=== PATIENT | male | born 1975 ===

== ENCOUNTER 2021-06-11 02:24 | Observation (INO) | payer OTHER ==
--- NOTE | 2021-06-11 04:57 | Emergency Department Report ---
HPI - General Chief Complaint: Psych Time Seen by Provider: 06/11/21 03:49 - HPI HPI: 45-year-old male reportedly with history of schizophrenia/bipolar disorder brought in by EMS for SI/HI. The patient states that he is having a crisis and his of 25 years left him. He states that he stood over her today with a gun and wanted to kill her. He says that he did not kill her because he still loves her but that he wanted to be killed by avionics supervisor in a shoot out. He told the operations staff specialist security that when he gets out of here he is going to go kill his . He says to me that he has command auditory hallucinations telling him to kill himself. He denies visual hallucinations. He denies any physical symptoms or complaints other than anxiety and stress. ED Past Medical Hx - Past Medical History Previous Medical History?: Yes Hx Psychiatric Treatment: (bipolar, Schizophrenia) - Surgical History Past Surgical History?: No - Social History Smoking Status: Current Every Day Smoker Substance Use Type: Alcohol, Marijuana - Medications Home Medications: Home Medications Medication Instructions Recorded Confirmed Last Taken Type Divalproex Dr [Karen Raymundo] 250 mg PO BID #60 tablet 06/14/21 Unknown Rx Famotidine [Pepcid] 20 mg PO BID tablet 06/14/21 Unknown Rx OLANzapine [ZyPREXA] 7.5 mg PO QDAY #30 tablet 06/14/21 Unknown Rx traZODone [Desyrel] 50 mg PO QHS #30 tablet 06/14/21 Unknown Rx ED Review of Systems ROS: Stated complaint: MH Other details as noted in HPI Constitutional: denies: chills, fever Eyes: denies: eye pain, vision change ENT: denies: throat pain, dental pain Respiratory: denies: cough, shortness of breath Cardiovascular: denies: chest pain, palpitations Gastrointestinal: denies: abdominal pain, nausea, vomiting Genitourinary: denies: dysuria, frequency, discharge Musculoskeletal: denies: back pain, joint swelling Neurological: denies: headache, weakness, numbness Psychiatric: depression, auditory hallucinations, homicidal thoughts, suicidal thoughts. denies: visual hallucinations Physical Exam - Physical Exam Vital Signs: Vital Signs 06/11/21 03:37 Temperature 98.2 F Pulse Rate 64 Respiratory 18 Rate Blood Pressure 130/69 [Left] O2 Sat by Pulse 98 Oximetry Physical Exam: GENERAL: Well developed and well nourished. Tearful. Withdrawn. HEENT: Normocephalic. No obvious signs of trauma. Moist mucous membranes. EYES: Extraocular movements are intact. Pupils are equal round and reactive to light bilaterally NECK: Supple. Trachea is midline. LUNGS: Nonlabored breathing. Equal chest rise bilaterally. Clear to auscultation bilaterally. HEART/CARDIOVASCULAR: Regular rate and rhythm. No murmurs or rubs. VASCULAR: 2+ peripheral pulses. Cap refill < 2 seconds ABDOMEN: Abdomen is soft and nondistended. There is no significant tenderness, guarding or rebound. SKIN: Skin is warm and dry NEURO: Patient is awake, alert, and oriented. manager of photography II-XII grossly intact. No focal deficits. Normal motor and sensory exam throughout. Normal speech. Normal gait. MUSCULOSKELETAL: No obvious deformities. No significant tenderness. Normal ROM throughout. . ED Course Vital Signs 06/11/21 03:37 Temperature 98.2 F Pulse Rate 64 Respiratory 18 Rate Blood Pressure 130/69 [Left] O2 Sat by Pulse 98 Oximetry ED Medical Decision Making - Lab Data Result diagrams: 06/13/21 09:59 06/13/21 09:59 Lab Results 06/11/21 06/11/21 06/11/21 Range/Units 03:41 03:41 08:23 WBC (4.5-11.0) K/mm3 RBC (3.65-5.03) M/mm3 Hgb (11.8-15.2) gm/dl Hct (35.5-45.6) % MCV (84-94) fl MCH (28-32) pg MCHC (32-34) % RDW (13.2-15.2) % Plt Count (140-440) K/mm3 Lymph % (Auto) (13.4-35.0) % [place] % (Auto) (0.0-7.3) % Eos % (Auto) (0.0-4.3) % Baso % (Auto) (0.0-1.8) % Lymph # (Auto) (1.2-5.4) K/mm3 [place] # (Auto) (0.0-0.8) K/mm3 Eos # (Auto) (0.0-0.4) K/mm3 Baso # (Auto) (0.0-0.1) K/mm3 Seg Neutrophils % (40.0-70.0) % Seg Neutrophils # (1.8-7.7) K/mm3 Sodium (137-145) mmol/L Potassium (3.6-5.0) mmol/L Chloride (98-107) mmol/L Carbon Dioxide (22-30) mmol/L Anion Gap mmol/L BUN (9-20) mg/dL Creatinine (0.8-1.3) mg/dL Estimated GFR ml/min BUN/Creatinine Ratio % Glucose (75-100) mg/dL Calcium (8.4-10.2) mg/dL Urine Color Yellow (Yellow) Urine Turbidity Clear (Clear) Urine pH 5.0 (5.0-7.0) Ur Specific [place] 1.021 (1.003-1.030) Urine Protein <15 mg/dl (Negative) mg/dL Urine Glucose (UA) Neg (Negative) mg/dL Urine Ketones 20 (Negative) mg/dL Urine Blood Neg (Negative) Urine Nitrite Neg (Negative) Urine Bilirubin Neg (Negative) Urine Urobilinogen 4.0 (<2.0) mg/dL Ur Leukocyte Esterase Neg (Negative) Urine WBC (Auto) 1.0 (0.0-6.0) /HPF Urine RBC (Auto) 1.0 (0.0-6.0) /HPF U Epithel Cells (Auto) < 1.0 (0-13.0) /HPF Urine Mucus Few /HPF Salicylates < 0.3 L (2.8-20.0) mg/dL Urine Opiates Screen Presumptive negative Urine Methadone Screen Presumptive negative Acetaminophen (10.0-30.0) ug/mL Ur Barbiturates Screen Presumptive negative Ur Phencyclidine Scrn Presumptive negative Ur Amphetamines Screen Presumptive negative U Benzodiazepines Scrn Presumptive negative Urine Cocaine Screen Presumptive negative U Marijuana (THC) Screen Presumptive positive Drugs of Abuse Note Disclamer Plasma/Serum Alcohol (0-0.07) % Coronavirus (PCR) (Negative) 06/11/21 06/11/21 06/11/21 Range/Units 08:23 08:23 08:23 WBC (4.5-11.0) K/mm3 RBC (3.65-5.03) M/mm3 Hgb (11.8-15.2) gm/dl Hct (35.5-45.6) % MCV (84-94) fl MCH (28-32) pg MCHC (32-34) % RDW (13.2-15.2) % Plt Count (140-440) K/mm3 Lymph % (Auto) (13.4-35.0) % [place] % (Auto) (0.0-7.3) % Eos % (Auto) (0.0-4.3) % Baso % (Auto) (0.0-1.8) % Lymph # (Auto) (1.2-5.4) K/mm3 [place] # (Auto) (0.0-0.8) K/mm3 Eos # (Auto) (0.0-0.4) K/mm3 Baso # (Auto) (0.0-0.1) K/mm3 Seg Neutrophils % (40.0-70.0) % Seg Neutrophils # (1.8-7.7) K/mm3 Sodium 142 (137-145) mmol/L Potassium 3.7 (3.6-5.0) mmol/L Chloride 106.0 (98-107) mmol/L Carbon Dioxide 26 (22-30) mmol/L Anion Gap 14 mmol/L BUN 9 (9-20) mg/dL Creatinine 1.0 (0.8-1.3) mg/dL Estimated GFR > 60 ml/min BUN/Creatinine Ratio 9 % Glucose 77 (75-100) mg/dL Calcium 9.4 (8.4-10.2) mg/dL Urine Color (Yellow) Urine Turbidity (Clear) Urine pH (5.0-7.0) Ur Specific [place] (1.003-1.030) Urine Protein (Negative) mg/dL Urine Glucose (UA) (Negative) mg/dL Urine Ketones (Negative) mg/dL Urine Blood (Negative) Urine Nitrite (Negative) Urine Bilirubin (Negative) Urine Urobilinogen (<2.0) mg/dL Ur Leukocyte Esterase (Negative) Urine WBC (Auto) (0.0-6.0) /HPF Urine RBC (Auto) (0.0-6.0) /HPF U Epithel Cells (Auto) (0-13.0) /HPF Urine Mucus /HPF Salicylates (2.8-20.0) mg/dL Urine Opiates Screen Urine Methadone Screen Acetaminophen 5.0 L (10.0-30.0) ug/mL Ur Barbiturates Screen Ur Phencyclidine Scrn Ur Amphetamines Screen U Benzodiazepines Scrn Urine Cocaine Screen U Marijuana (THC) Screen Drugs of Abuse Note Plasma/Serum Alcohol < 0.01 (0-0.07) % Coronavirus (PCR) (Negative) 06/11/21 06/11/21 06/12/21 Range/Units 08:23 10:23 07:59 WBC 13.6 H 12.7 H (4.5-11.0) K/mm3 RBC 4.63 4.85 (3.65-5.03) M/mm3 Hgb 13.9 14.2 (11.8-15.2) gm/dl Hct 43.5 45.1 (35.5-45.6) % MCV 94 93 (84-94) fl MCH 30 29 (28-32) pg MCHC 32 32 (32-34) % RDW 14.7 14.7 (13.2-15.2) % Plt Count 376 430 (140-440) K/mm3 Lymph % (Auto) 16.9 (13.4-35.0) % Berg[place] % (Auto) 5.8 (0.0-7.3) % Eos % (Auto) 0.5 (0.0-4.3) % Baso % (Auto) 0.5 (0.0-1.8) % Lymph # (Auto) 2.3 (1.2-5.4) K/mm3 [place] # (Auto) 0.8 (0.0-0.8) K/mm3 Eos # (Auto) 0.1 (0.0-0.4) K/mm3 Baso # (Auto) 0.1 (0.0-0.1) K/mm3 Seg Neutrophils % 76.3 H (40.0-70.0) % Seg Neutrophils # 10.4 H (1.8-7.7) K/mm3 Sodium (137-145) mmol/L Potassium (3.6-5.0) mmol/L Chloride (98-107) mmol/L Carbon Dioxide (22-30) mmol/L Anion Gap mmol/L BUN (9-20) mg/dL Creatinine (0.8-1.3) mg/dL Estimated GFR ml/min BUN/Creatinine Ratio % Glucose (75-100) mg/dL Calcium (8.4-10.2) mg/dL Urine Color (Yellow) Urine Turbidity (Clear) Urine pH (5.0-7.0) Ur Specific [place] (1.003-1.030) Urine Protein (Negative) mg/dL Urine Glucose (UA) (Negative) mg/dL Urine Ketones (Negative) mg/dL Urine Blood (Negative) Urine Nitrite (Negative) Urine Bilirubin (Negative) Urine Urobilinogen (<2.0) mg/dL Ur Leukocyte Esterase (Negative) Urine WBC (Auto) (0.0-6.0) /HPF Urine RBC (Auto) (0.0-6.0) /HPF U Epithel Cells (Auto) (0-13.0) /HPF Urine Mucus /HPF Salicylates (2.8-20.0) mg/dL Urine Opiates Screen Urine Methadone Screen Acetaminophen (10.0-30.0) ug/mL Ur Barbiturates Screen Ur Phencyclidine Scrn Ur Amphetamines Screen U Benzodiazepines Scrn Urine Cocaine Screen U Marijuana (THC) Screen Drugs of Abuse Note Plasma/Serum Alcohol (0-0.07) % Coronavirus (PCR) Negative (Negative) - Medical Decision Making 45-year-old male brought in by EMS with SI/HI. The patient told me that earlier today he went and stood over his with a gun and thought about killing her. He says he did not kill her because he loves her but was thinking about dying by having the avionics supervisor shoot him. He also reports that he is having command auditory hallucinations telling him to kill himself. Given that he has expressed a threat towards both himself and others I feel that he is a danger and I have placed and signed a 1013 order. I will send a full set of medical clearance labs. Of note, the patient apparently told security that he shot his yesterday, which is different from the story that I heard. The police have been called to make a report. Patient's labs have resulted and there is only a mild leukocytosis. Patient has no signs or symptoms of infection. Kidney function is normal and there are no significant electrolyte abnormalities. He is medically cleared for psychiatric evaluation and placement. On 06/12/2021, the patient was admitted to medicine due to persistent leukocytosis. Critical care attestation.: If time is entered above; I have spent that time in minutes in the direct care of this critically ill patient, excluding procedure time. ED Disposition Clinical Impression: Leukocytosis (leucocytosis), Psychosis Disposition: OP ADMIT IP TO THIS HOSP Is pt being admited?: Yes Condition: Stable
[2021-06-11 06:11] LABS: Bilirubin,Urine NEG (Negative); Blood,Urine NEG (Negative); Color,Urine Yellow (Yellow); Mucus,Urine FEW /HPF; Protein,Urine <15 mg/dL mg/dL (Negative)
[2021-06-11 06:18] LABS: Amphetamine Screen,Urine PRESUMPTIVE NEGATIVE; Benzodiazepines Screen,Urine PRESUMPTIVE NEGATIVE; Cannabinoid Screen,Urine PRESUMPTIVE POSITIVE; Cocaine Screen,Urine PRESUMPTIVE NEGATIVE; Methadone Screen,Urine PRESUMPTIVE NEGATIVE; Opiate Screen,Urine PRESUMPTIVE NEGATIVE
[2021-06-11 09:23] LABS: BUN/Creatinine Ratio 9; Blood Urea Nitrogen 9 mg/dL (9-20); Calcium 9.4 mg/dL (8.4-10.2); Hemolysis Index 1
[2021-06-11 09:31] LABS: Basophils # (Auto) 0.1 K/mm3 (0.0-0.1); Basophils % (Auto) 0.5 % (0.0-1.8); Eosinophils # (Auto) 0.1 K/mm3 (0.0-0.4); Eosinophils % (Auto) 0.5 % (0.0-4.3); Hematocrit 43.5 % (35.5-45.6); Hemoglobin 13.9 gm/dl (11.8-15.2); Lymphocytes # (Auto) 2.3 K/mm3 (1.2-5.4); Lymphocytes % (Auto) 16.9 % (13.4-35.0); Mean Corpuscular HGB Conc 32 % (32-34); Mean Corpuscular Volume 94 fl (84-94); Monocytes # (Auto) 0.8 K/mm3 (0.0-0.8); Monocytes % (Auto) 5.8 % (0.0-7.3); Platelet Count 376 K/mm3 (140-440); Red Blood Count 4.63 M/mm3 (3.65-5.03); Red Cell Distribution Width 14.7 % (13.2-15.2)
--- NOTE | 2021-06-11 09:31 | Consultation ---
History of Present Illness - Reason for Consult Consult date: 06/11/21 Reason for consult: SI/HI - History of Present Psychiatric Illness Per ER Note: 45-year-old male reportedly with history of schizophrenia/bipolar disorder brought in by EMS for SI/HI. The patient states that he is having a crisis and his of 25 years left him. He states that he stood over her today with a gun and wanted to kill her. He says that he did not kill her because he still loves her but that he wanted to be killed by notch grinder in a shoot out. He told the internet security specialist that when he gets out of here he is going to go kill his . He says to me that he has command auditory hallucinations telling him to kill himself. He denies visual hallucinations. He denies any physical symptoms or complaints other than anxiety and stress. Flores Lopez is a 45y/o male patient whom I evaluated today. He is cooperative. He is tearful, and appears depressed. His affect is flat. The patient is hopeless. He says "last night I wanted to kill myself and my ." The patient says "I have so much vested in that relationship. I only want her." He says he is hearing voices telling him to "kill her ass." The patient says he knows he can get away with it. Discussed with the patient the need to think about his decisions and the consequences they will have. The patient says "I've gotten away with murder before. I haven't got caught. You get better at it each time." He says he sees "green and blue dots." He says he was just released from snf in January. The patient denies a past psych diagnoses or being on any meds although it is documented that he has a history of schizophrenia and bipolar. PAST PSYCHIATRIC HISTORY: Diagnoses: Schizophrenia, bipolar (documented but denies) Suicide attempts or Self-harm behavior: Denies Prior psychiatric hospitalizations: Denies Substance Abuse history: THC, alcohol (two months since any alcohol) Previous psychiatric medications tried: Denies Outpatient treatment: Denies PAST MEDICAL HISTORY: Denies Family Psychiatric History: None reported or documented SOCIAL HISTORY Marital Status: Living Arrangements: alone Employment Status: Unemployed Access to guns/weapons: denies Education: History of Abuse: denies Legal History: denies REVIEW OF SYSTEMS Constitutional: Negative for weight loss ENT: Negative for stridor Respiratory: Negative for cough or hemoptysis All other systems reviewed and are negative MENTAL STATUS EXAMINATION General Appearance and Behavior: Age appropriate, wearing appropriate clothes, cooperative polite with questioning, good eye contact, cooperative Cooperation: cooperative, guarded Psychomotor Behavior: Psychomotor normal Mood: "depressed" Affect and affective range: congruent with stated mood, tearful Thought Process: illogical Thought Content: hallucinations, HI/SI, hopelessness Speech: Normal volume, Regular rate and rhythm Suicidal Ideation: Yes Homicidal Ideation: Yes hallucination: Auditory/Visual Delusions: None elicited Impulse Control: Impaired Insight and Judgment: Impaired Memory: Intact Attention: attentive, engaging Orientation: Alert and oriented Diagnoses: Schizophrenia Treatment Plan [address] 125mg po BID Olanzapine 5mg po daily PSYCHOTHERAPY: Supportive psychotherapy provided MEDICAL: Per primary team DELIRIUM PRECAUTIONS: Please re-orient patient frequently, keep lights on during the day, and minimize benzodiazepines and opiates as these medications could worsen patient's confusion. PHOTO TECH: Per medical team DISPOSITION: Recommend acute psychiatric inpatient treatment will follow Thank you for the consult. Please contact with any questions and/or concerns. Case staffed with Dr. Knapp Medications and Allergies Allergies Allergy/AdvReac Type Severity Reaction Status Date / Time No Known Allergies Allergy Unverified 06/11/21 03:11 Mental Status Exam - Vital signs Last Vital Signs Temp 98.3 F 06/11/21 08:00 Pulse 78 06/11/21 08:00 Resp 20 06/11/21 08:00 BP 133/93 06/11/21 08:00 Pulse Ox 97 06/11/21 08:00 Results Result Diagrams: 06/11/21 08:23 06/11/21 08:23 Abnormal lab results 06/11/21 Range/Units 08:23 Salicylates < 0.3 L (2.8-20.0) mg/dL All other labs normal.
[2021-06-11] MEDS: DIVALPROEX DR 125 MG TAB PO SCH ×2 (10:05→22:41)
--- NOTE | 2021-06-11 10:42 | Event Note ---
Date: 06/11/21 S: No events reported overnight O: Vital Signs - 24 hr 06/11/21 06/11/21 03:37 08:00 Temperature 98.2 F 98.3 F Pulse Rate 64 78 Respiratory 18 20 Rate Blood Pressure 130/69 133/93 [Left] O2 Sat by Pulse 98 97 Oximetry A: Schizophrenia P: Awaiting psych patient placement
[2021-06-11] MEDS ORDERED: SODIUM CHLORIDE 0.9% 1000 ML 1,000 ML IV ONE (13:30)
[2021-06-12 08:19] LABS: Hematocrit 45.1 % (35.5-45.6); Hemoglobin 14.2 gm/dl (11.8-15.2); Mean Corpuscular HGB Conc 32 % (32-34); Mean Corpuscular Volume 93 fl (84-94); Platelet Count 430 K/mm3 (140-440); Red Blood Count 4.85 M/mm3 (3.65-5.03); Red Cell Distribution Width 14.7 % (13.2-15.2)
--- NOTE | 2021-06-12 08:43 | Progress Note ---
Subjective - Reason for Consult Consult date: 06/12/21 Reason for consult: SI/HI - Chief Complaint Chief complaint: The patient was seen today, he still endorses SI/HI. He says he is depressed. The patient states voices are telling him to "kill her when I get out." He says he did not sleep last night. REVIEW OF SYSTEMS Constitutional: Negative for weight loss ENT: Negative for stridor Respiratory: Negative for cough or hemoptysis All other systems reviewed and are negative MENTAL STATUS EXAMINATION General Appearance and Behavior: Age appropriate, wearing appropriate clothes, cooperative polite with questioning, good eye contact, cooperative Cooperation: cooperative, guarded Psychomotor Behavior: Psychomotor normal Mood: "depressed" Affect and affective range: congruent with stated mood, tearful Thought Process: illogical Thought Content: hallucinations, HI/SI, hopelessness Speech: Normal volume, Regular rate and rhythm Suicidal Ideation: Yes Homicidal Ideation: Yes hallucination: Auditory Delusions: None elicited Impulse Control: Impaired Insight and Judgment: Impaired Memory: Intact Attention: attentive, engaging Orientation: Alert and oriented Diagnoses: Schizophrenia Treatment Plan [address] 250mg po BID Increase Olanzapine 7.5mg po daily Start Trazodone 50mg po qhs PSYCHOTHERAPY: Supportive psychotherapy provided MEDICAL: Per primary team DELIRIUM PRECAUTIONS: Please re-orient patient frequently, keep lights on during the day, and minimize benzodiazepines and opiates as these medications could worsen patient's confusion. CELL REPAIRER: Per medical team DISPOSITION: Recommend acute psychiatric inpatient treatment will follow Thank you for the consult. Please contact with any questions and/or concerns. Case staffed with Dr. Knapp Mental Status Exam - Vital signs Last Vital Signs Temp 98.6 F 06/12/21 02:00 Pulse 78 06/12/21 02:00 Resp 18 06/12/21 02:00 BP 129/76 06/12/21 02:00 Pulse Ox 100 06/12/21 02:00
[2021-06-12] MEDS: DIVALPROEX DR 250 MG TAB PO SCH ×2 (09:44→22:28)
[2021-06-12] MEDS ORDERED: diphenhydrAMINE 25 MG CAP PO PRN (10:53)
[2021-06-12] MEDS ORDERED: ACETAMINOPHEN 325 MG TAB PO PRN ×2 (10:53→21:35)
[2021-06-12] MEDS ORDERED: ONDANSETRON 4 MG ODT TAB PO PRN (10:53)
--- NOTE | 2021-06-12 10:57 | Event Note ---
Date: 06/12/21 Initial ER documentation reviewed and appreciated, psychiatric consultation and documentation reviewed and appreciated, nursing documentation reviewed and appreciated. Patient resting comfortably in chair. He is awake, stoic, with a flat affect. He denies physical pain to myself. As per psychiatric documentation, he continues to endorse suicidality, homicidality. Laboratory studies vital signs are reviewed and appreciated. Patient remains medically suitable for psychiatric placement, consultation and disposition at this time. The patient did ask me how long it would take him to get placed in a psychiatric facility. Vital Signs 06/11/21 06/11/21 06/11/21 03:37 08:00 19:30 Temperature 98.2 F 98.3 F 97.9 F Pulse Rate 64 78 65 Respiratory 18 20 18 Rate Blood Pressure 130/69 133/93 138/90 [Left] O2 Sat by Pulse 98 97 100 Oximetry 06/12/21 02:00 Temperature 98.6 F Pulse Rate 78 Respiratory 18 Rate Blood Pressure 129/76 [Left] O2 Sat by Pulse 100 Oximetry Lab Results 06/11/21 06/11/21 06/11/21 Range/Units 03:41 03:41 08:23 WBC (4.5-11.0) K/mm3 RBC (3.65-5.03) M/mm3 Hgb (11.8-15.2) gm/dl Hct (35.5-45.6) % MCV (84-94) fl MCH (28-32) pg MCHC (32-34) % RDW (13.2-15.2) % Plt Count (140-440) K/mm3 Lymph % (Auto) (13.4-35.0) % [place]rell % (Auto) (0.0-7.3) % Eos % (Auto) (0.0-4.3) % Baso % (Auto) (0.0-1.8) % Lymph # (Auto) (1.2-5.4) K/mm3 [place]rell # (Auto) (0.0-0.8) K/mm3 Eos # (Auto) (0.0-0.4) K/mm3 Baso # (Auto) (0.0-0.1) K/mm3 Seg Neutrophils % (40.0-70.0) % Seg Neutrophils # (1.8-7.7) K/mm3 Sodium (137-145) mmol/L Potassium (3.6-5.0) mmol/L Chloride (98-107) mmol/L Carbon Dioxide (22-30) mmol/L Anion Gap mmol/L BUN (9-20) mg/dL Creatinine (0.8-1.3) mg/dL Estimated GFR ml/min BUN/Creatinine Ratio % Glucose (75-100) mg/dL Calcium (8.4-10.2) mg/dL Urine Color Yellow (Yellow) Urine Turbidity Clear (Clear) Urine pH 5.0 (5.0-7.0) Ur Specific [place] 1.021 (1.003-1.030) Urine Protein <15 mg/dl (Negative) mg/dL Urine Glucose (UA) Neg (Negative) mg/dL Urine Ketones 20 (Negative) mg/dL Urine Blood Neg (Negative) Urine Nitrite Neg (Negative) Urine Bilirubin Neg (Negative) Urine Urobilinogen 4.0 (<2.0) mg/dL Ur Leukocyte Esterase Neg (Negative) Urine WBC (Auto) 1.0 (0.0-6.0) /HPF Urine RBC (Auto) 1.0 (0.0-6.0) /HPF U Epithel Cells (Auto) < 1.0 (0-13.0) /HPF Urine Mucus Few /HPF Salicylates < 0.3 L (2.8-20.0) mg/dL Urine Opiates Screen Presumptive negative Urine Methadone Screen Presumptive negative Acetaminophen (10.0-30.0) ug/mL Ur Barbiturates Screen Presumptive negative Ur Phencyclidine Scrn Presumptive negative Ur Amphetamines Screen Presumptive negative U Benzodiazepines Scrn Presumptive negative Urine Cocaine Screen Presumptive negative U Marijuana (THC) Screen Presumptive positive Drugs of Abuse Note Disclamer Plasma/Serum Alcohol (0-0.07) % Coronavirus (PCR) (Negative) 06/11/21 06/11/21 06/11/21 Range/Units 08:23 08:23 08:23 WBC (4.5-11.0) K/mm3 RBC (3.65-5.03) M/mm3 Hgb (11.8-15.2) gm/dl Hct (35.5-45.6) % MCV (84-94) fl MCH (28-32) pg MCHC (32-34) % RDW (13.2-15.2) % Plt Count (140-440) K/mm3 Lymph % (Auto) (13.4-35.0) % [place]rell % (Auto) (0.0-7.3) % Eos % (Auto) (0.0-4.3) % Baso % (Auto) (0.0-1.8) % Lymph # (Auto) (1.2-5.4) K/mm3 [place]rell # (Auto) (0.0-0.8) K/mm3 Eos # (Auto) (0.0-0.4) K/mm3 Baso # (Auto) (0.0-0.1) K/mm3 Seg Neutrophils % (40.0-70.0) % Seg Neutrophils # (1.8-7.7) K/mm3 Sodium 142 (137-145) mmol/L Potassium 3.7 (3.6-5.0) mmol/L Chloride 106.0 (98-107) mmol/L Carbon Dioxide 26 (22-30) mmol/L Anion Gap 14 mmol/L BUN 9 (9-20) mg/dL Creatinine 1.0 (0.8-1.3) mg/dL Estimated GFR > 60 ml/min BUN/Creatinine Ratio 9 % Glucose 77 (75-100) mg/dL Calcium 9.4 (8.4-10.2) mg/dL Urine Color (Yellow) Urine Turbidity (Clear) Urine pH (5.0-7.0) Ur Specific [place] (1.003-1.030) Urine Protein (Negative) mg/dL Urine Glucose (UA) (Negative) mg/dL Urine Ketones (Negative) mg/dL Urine Blood (Negative) Urine Nitrite (Negative) Urine Bilirubin (Negative) Urine Urobilinogen (<2.0) mg/dL Ur Leukocyte Esterase (Negative) Urine WBC (Auto) (0.0-6.0) /HPF Urine RBC (Auto) (0.0-6.0) /HPF U Epithel Cells (Auto) (0-13.0) /HPF Urine Mucus /HPF Salicylates (2.8-20.0) mg/dL Urine Opiates Screen Urine Methadone Screen Acetaminophen 5.0 L (10.0-30.0) ug/mL Ur Barbiturates Screen Ur Phencyclidine Scrn Ur Amphetamines Screen U Benzodiazepines Scrn Urine Cocaine Screen U Marijuana (THC) Screen Drugs of Abuse Note Plasma/Serum Alcohol < 0.01 (0-0.07) % Coronavirus (PCR) (Negative) 06/11/21 06/11/21 06/12/21 Range/Units 08:23 10:23 07:59 WBC 13.6 H 12.7 H (4.5-11.0) K/mm3 RBC 4.63 4.85 (3.65-5.03) M/mm3 Hgb 13.9 14.2 (11.8-15.2) gm/dl Hct 43.5 45.1 (35.5-45.6) % MCV 94 93 (84-94) fl MCH 30 29 (28-32) pg MCHC 32 32 (32-34) % RDW 14.7 14.7 (13.2-15.2) % Plt Count 376 430 (140-440) K/mm3 Lymph % (Auto) 16.9 (13.4-35.0) % Terrell % (Auto) 5.8 (0.0-7.3) % Eos % (Auto) 0.5 (0.0-4.3) % Baso % (Auto) 0.5 (0.0-1.8) % Lymph # (Auto) 2.3 (1.2-5.4) K/mm3 [place]rell # (Auto) 0.8 (0.0-0.8) K/mm3 Eos # (Auto) 0.1 (0.0-0.4) K/mm3 Baso # (Auto) 0.1 (0.0-0.1) K/mm3 Seg Neutrophils % 76.3 H (40.0-70.0) % Seg Neutrophils # 10.4 H (1.8-7.7) K/mm3 Sodium (137-145) mmol/L Potassium (3.6-5.0) mmol/L Chloride (98-107) mmol/L Carbon Dioxide (22-30) mmol/L Anion Gap mmol/L BUN (9-20) mg/dL Creatinine (0.8-1.3) mg/dL Estimated GFR ml/min BUN/Creatinine Ratio % Glucose (75-100) mg/dL Calcium (8.4-10.2) mg/dL Urine Color (Yellow) Urine Turbidity (Clear) Urine pH (5.0-7.0) Ur Specific [place] (1.003-1.030) Urine Protein (Negative) mg/dL Urine Glucose (UA) (Negative) mg/dL Urine Ketones (Negative) mg/dL Urine Blood (Negative) Urine Nitrite (Negative) Urine Bilirubin (Negative) Urine Urobilinogen (<2.0) mg/dL Ur Leukocyte Esterase (Negative) Urine WBC (Auto) (0.0-6.0) /HPF Urine RBC (Auto) (0.0-6.0) /HPF U Epithel Cells (Auto) (0-13.0) /HPF Urine Mucus /HPF Salicylates (2.8-20.0) mg/dL Urine Opiates Screen Urine Methadone Screen Acetaminophen (10.0-30.0) ug/mL Ur Barbiturates Screen Ur Phencyclidine Scrn Ur Amphetamines Screen U Benzodiazepines Scrn Urine Cocaine Screen U Marijuana (THC) Screen Drugs of Abuse Note Plasma/Serum Alcohol (0-0.07) % Coronavirus (PCR) Negative (Negative)
--- NOTE | 2021-06-12 11:28 | Event Note ---
This Is a 45-year-old male history of bipolar disorder and schizophrenia who presents with suicidal homicidal ideation. Currently ED hold in place. 1013 form completed. Patient has had persistent leukocytosis. Consequently patient is admitted to the hospitalist service for further treatment evaluation with psychiatry consultation. I discussed case with hospitalist Dr. Pulliam.
[2021-06-12 14:57] LABS: Hematocrit 44.3 % (35.5-45.6); Mean Corpuscular HGB Conc 32 % (32-34); Mean Corpuscular Volume 93 fl (84-94); Platelet Count 405 K/mm3 (140-440); Red Blood Count 4.76 M/mm3 (3.65-5.03); Red Cell Distribution Width 14.6 % (13.2-15.2)
[2021-06-12] MEDS: traZODone 50 MG TAB PO SCH (21:19)
--- NOTE | 2021-06-12 21:19 | History and Physical Report ---
History of Present Illness Date of examination: 06/12/21 Date of admission: 06/12/21 11:24 Chief complaint: Psychosis Elevated WBC History of present illness: 45-year-old male reportedly with history of schizophrenia/bipolar disorder brought in by EMS for SI/HI. The patient states that he is having a crisis and his of 25 years left him. He states that he stood over her today with a gun and wanted to kill her. He says that he did not kill her because he still loves her but that he wanted to be killed by job development specialist in a shoot out. He told the armed security professional that when he gets out of here he is going to go kill his . He says to me that he has command auditory hallucinations telling him to kill himself. He denies visual hallucinations. He denies any physical symptoms or complaints other than anxiety and stress. ED work-up shows WBC statin 0.6, 12.7, 12.8, hemoglobin 14.0 sodium 142, potassium 3.7, creatinine 1.0, urinalysis done no sign of UTI, and a urine drug test done patient has marijuana positive. Patient is 45-year-old who has a history of schizophrenia and bipolar disorder came to the ED with suicidal ideation treatment that he has had is hearing voices that tell him to kill himself. Patient has a elevated WBC and blood work. Patient is being admitted for observation still when he is accepted by psych unit/facility. Patient is medically stable will be discharged as soon as there is accepting psych facility. Past History Past Medical History: other (elevated WBC) Past Surgical History: No surgical history Social history: no significant social history Family history: no significant family history Medications and Allergies Allergies Allergy/AdvReac Type Severity Reaction Status Date / Time No Known Allergies Allergy Unverified 06/11/21 03:11 Active Meds: Active Medications Acetaminophen (Acetaminophen 325 Mg Tab) 650 mg PO Q6HR PRN PRN Reason: PAIN Diphenhydramine HCl (Diphenhydramine 25 Mg Cap) 50 mg PO QHS PRN PRN Reason: Insomnia Divalproex Sodium (Divalproex Dr 250 Mg Tab) 250 mg PO BID MITCH Last Admin: 06/12/21 09:44 Dose: 250 mg Documented by: Lorazepam (Lorazepam 2 Mg/Ml Vial) 2 mg IM Q4HR PRN PRN Reason: Agitation Olanzapine (Olanzapine 7.5 Mg Tab) 7.5 mg PO QDAY [facility] Last Admin: 06/12/21 09:44 Dose: 7.5 mg Documented by: Ondansetron HCl (Ondansetron 4 Mg Odt Tab) 4 mg PO Q6HR PRN PRN Reason: Nausea Trazodone HCl (Trazodone 50 Mg Tab) 50 mg PO QHS [facility] Review of Systems Respiratory: no congestion, no wheezing Gastrointestinal: no melena Rectal: no hemorrhoids Integumentary: no lesions Neurological: no head injury Psychiatric: anxiety, sleep disturbances, suicidal ideation, disorientation, hallucinations, depression, anxiety attacks Hematologic/Lymphatic: no easy bruising, no easy bleeding Exam - Constitutional Vitals: Temp Pulse Resp BP Pulse Ox 97.9 F 57 L 18 144/81 99 06/12/21 20:28 06/12/21 20:28 06/12/21 20:28 06/12/21 20:28 06/12/21 20:28 General appearance: Present: severe distress, well-nourished - EENT Eyes: Present: PERRL ENT: hearing intact, clear oral mucosa - Neck Neck: Present: supple, normal ROM - Respiratory Respiratory effort: normal Respiratory: bilateral: CTA - Cardiovascular Heart Sounds: Present: S1 & S2. Absent: rub, click - Extremities Extremities: pulses symmetrical, No edema Peripheral Pulses: within normal limits - Abdominal General gastrointestinal: Present: soft, non-tender, non-distended, normal bowel sounds Male genitourinary: Present: normal - Integumentary Integumentary: Present: clear, warm, dry - Musculoskeletal Musculoskeletal: gait normal, strength equal bilaterally - Psychiatric Psychiatric: appropriate mood/affect, intact judgment & insight - Neurologic Neurologic: CNII-XII intact, moves all extremities - Allied Health Allied health notes reviewed: nursing Results - Labs CBC & Chem 7: 06/12/21 14:15 06/11/21 08:23 Labs: Abnormal lab results 06/12/21 06/12/21 Range/Units 07:59 14:15 WBC 12.7 H 12.8 H (4.5-11.0) K/mm3 Assessment and Plan - Patient Problems (1) Leukocytosis (leucocytosis) Current Visit: Yes Status: Acute Plan to address problem: Unknown cause-likely reactive Patient has no evidence of infection Monitor WBC (2) Psychosis Current Visit: Yes Status: Acute Plan to address problem: Psych consult resume anti-psychotics patient is medically cleared D/c patient when Psych accepts patient (3) DVT prophylaxis Current Visit: Yes Status: Acute Plan to address problem: Lovenox
[2021-06-12] MEDS ORDERED: ALUM-MAG HYDROXIDE-SIMETHICONE 200-200-20MG/5ML ORAL LIQD 30 ML PO PRN (21:35)
[2021-06-12] MEDS ORDERED: NALOXONE 0.4 MG/1 ML INJ IV PRN (21:35)
[2021-06-12] MEDS ORDERED: ONDANSETRON 4 MG/2 ML INJ IV PRN (21:35)
[2021-06-12] MEDS ORDERED: METOCLOPRAMIDE 10 MG/2 ML INJ IV PRN (21:35)
[2021-06-12] MEDS ORDERED: MAGNESIUM HYDROXIDE (MOM) ORAL LIQD UDC PO PRN (21:35)
[2021-06-12] MEDS ORDERED: HYDROmorphone 1 MG/1 ML INJ IV PRN (21:35)
[2021-06-12] MEDS ORDERED: MORPHINE 4 MG/1 ML INJ IV PRN (21:35)
[2021-06-12] MEDS ORDERED: MORPHINE 2 MG/1 ML INJ IV PRN (21:35)
[2021-06-12] MEDS ORDERED: traMADol 50 MG TAB PO PRN (21:38)
[2021-06-12] MEDS ORDERED: FAMOTIDINE 20 MG/2 ML INJ IV SCH (22:00)
[2021-06-12] MEDS: SENNOSIDES 8.6 MG TAB PO SCH (22:26)
[2021-06-12] MEDS: LORazepam 2 MG/ML VIAL IM PRN ×2 (23:07→23:14)
[2021-06-13] MEDS: SENNOSIDES 8.6 MG TAB PO SCH ×2 (09:44→21:51)
[2021-06-13] MEDS: FAMOTIDINE 20 MG TAB PO SCH ×2 (09:44→21:51)
[2021-06-13] MEDS: DIVALPROEX DR 250 MG TAB PO SCH ×2 (09:44→21:51)
[2021-06-13 10:26] LABS: Basophils # (Auto) 0.1 K/mm3 (0.0-0.1); Basophils % (Auto) 1.1 % (0.0-1.8); Eosinophils # (Auto) 0.2 K/mm3 (0.0-0.4); Eosinophils % (Auto) 1.3 % (0.0-4.3); Hematocrit 44.7 % (35.5-45.6); Hemoglobin 14.3 gm/dl (11.8-15.2); Lymphocytes % (Auto) 16.4 % (13.4-35.0); Mean Corpuscular HGB Conc 32 % (32-34); Mean Corpuscular Volume 92 fl (84-94); Monocytes % (Auto) 8.5 % (0.0-7.3); Platelet Count 411 K/mm3 (140-440); Red Blood Count 4.85 M/mm3 (3.65-5.03); Red Cell Distribution Width 14.7 % (13.2-15.2)
[2021-06-13 10:30] LABS: Alanine Aminotransferase 14 units/L (7-56); Albumin 3.9 g/dL (3.9-5); BUN/Creatinine Ratio 6; Blood Urea Nitrogen 6 mg/dL (9-20); Calcium 9.2 mg/dL (8.4-10.2); Hemolysis Index 9
--- NOTE | 2021-06-13 10:43 | XRay Report ---
XR chest 1V ap INDICATION / CLINICAL INFORMATION: leukocytosis. COMPARISON: None available. FINDINGS: SUPPORT DEVICES: None. HEART /PULMONARY VASCULATURE: No significant abnormality. LUNGS / PLEURA: No significant pulmonary or pleural abnormality. No pneumothorax. ADDITIONAL FINDINGS: No significant additional findings. IMPRESSION: 1. No acute findings. Signer Name: Maxime Walker MD Signed: 06/13/2021 10:39 AM Workstation Name: [id number]
--- NOTE | 2021-06-13 11:18 | Progress Note ---
Assessment and Plan Assessment and plan: 45-year-old male reportedly with history of schizophrenia/bipolar disorder brought in by EMS for SI/HI. The patient states that he is having a crisis and his of 25 years left him. He states that he stood over her today with a gun and wanted to kill her. He says that he did not kill her because he still loves her but that he wanted to be killed by support technician in a shoot out. He told the retail security professional that when he gets out of here he is going to go kill his . He says to me that he has command auditory hallucinations telling him to kill himself. He denies visual hallucinations. He denies any physical symptoms or complaints other than anxiety and stress. ED work-up shows WBC statin 0.6, 12.7, 12.8, hemoglobin 14.0 sodium 142, potassium 3.7, creatinine 1.0, urinalysis done no sign of UTI, and a urine drug test done patient has marijuana positive. Patient is 45-year-old who has a history of schizophrenia and bipolar disorder came to the ED with suicidal ideation treatment that he has had is hearing voices that tell him to kill himself. Patient has a elevated WBC and blood work. Patient is being admitted for observation still when he is accepted by psych unit/facility. Patient is medically stable will be discharged as soon as there is accepting psych facility. Marijuana use Will discuss marijuana use cessation when patient is mentally stable 06/13: Continue supportive care. Leukocytosis is secondary. CXR checked, no acute issue. Patient is medically stable for discharge once psych determines destination (1) Leukocytosis (leucocytosis) Current Visit: Yes Status: Acute Plan to address problem: Unknown cause-likely reactive Patient has no evidence of infection Monitor WBC (2) Psychosis Current Visit: Yes Status: Acute Plan to address problem: Psych consult resume anti-psychotics patient is medically cleared D/c patient when Psych accepts patient (3) DVT prophylaxis Current Visit: Yes Status: Acute Plan to address problem: Lovenox History Interval history: Patient seen and examined, walking around, no new complaints, no cough, no shortness of breath. Hospitalist Physical - Physical exam Narrative exam: General appearance: Present: well-nourished - EENT Eyes: Present: PERRL ENT: hearing intact, clear oral mucosa - Neck Neck: Present: supple, normal ROM - Respiratory Respiratory effort: normal Respiratory: bilateral: CTA - Cardiovascular Heart Sounds: Present: S1 & S2. Absent: rub, click - Extremities Extremities: pulses symmetrical, No edema Peripheral Pulses: within normal limits - Abdominal General gastrointestinal: Present: soft, non-tender, non-distended, normal bowel sounds Male genitourinary: Present: normal - Integumentary Integumentary: Present: clear, warm, dry - Musculoskeletal Musculoskeletal: gait normal, strength equal bilaterally - Psychiatric Psychiatric: appropriate mood/affect, intact judgment & insight - Neurologic Neurologic: CNII-XII intact, moves all extremities - Allied Health Allied health notes reviewed: nursing - Constitutional Vitals: Temp Pulse Resp BP Pulse Ox 98.2 F 65 18 99/47 95 06/13/21 04:00 06/13/21 04:00 06/13/21 04:00 06/13/21 04:00 06/13/21 04:00 General appearance: Present: severe distress, well-nourished Results - Labs CBC & Chem 7: 06/13/21 09:59 06/13/21 09:59 Labs: Laboratory Last Values WBC 12.3 K/mm3 (4.5-11.0) H 06/13/21 09:59 RBC 4.85 M/mm3 (3.65-5.03) 06/13/21 09:59 Hgb 14.3 gm/dl (11.8-15.2) 06/13/21 09:59 Hct 44.7 % (35.5-45.6) 06/13/21 09:59 MCV 92 fl (84-94) 06/13/21 09:59 MCH 30 pg (28-32) 06/13/21 09:59 MCHC 32 % (32-34) 06/13/21 09:59 RDW 14.7 % (13.2-15.2) 06/13/21 09:59 Plt Count 411 K/mm3 (140-440) 06/13/21 09:59 Lymph % (Auto) 16.4 % (13.4-35.0) 06/13/21 09:59 [place] % (Auto) 8.5 % (0.0-7.3) H 06/13/21 09:59 Eos % (Auto) 1.3 % (0.0-4.3) 06/13/21 09:59 Baso % (Auto) 1.1 % (0.0-1.8) 06/13/21 09:59 Lymph # (Auto) 2.0 K/mm3 (1.2-5.4) 06/13/21 09:59 [place] # (Auto) 1.0 K/mm3 (0.0-0.8) H 06/13/21 09:59 Eos # (Auto) 0.2 K/mm3 (0.0-0.4) 06/13/21 09:59 Baso # (Auto) 0.1 K/mm3 (0.0-0.1) 06/13/21 09:59 Seg Neutrophils % 72.7 % (40.0-70.0) H 06/13/21 09:59 Seg Neutrophils # 8.9 K/mm3 (1.8-7.7) H 06/13/21 09:59 Sodium 141 mmol/L (137-145) 06/13/21 09:59 Potassium 3.5 mmol/L (3.6-5.0) L 06/13/21 09:59 Chloride 104.5 mmol/L (98-107) 06/13/21 09:59 Carbon Dioxide 25 mmol/L (22-30) 06/13/21 09:59 Anion Gap 15 mmol/L 06/13/21 09:59 BUN 6 mg/dL (9-20) L 06/13/21 09:59 Creatinine 1.0 mg/dL (0.8-1.3) 06/13/21 09:59 Estimated GFR > 60 ml/min 06/13/21 09:59 BUN/Creatinine Ratio 6 % 06/13/21 09:59 Glucose 98 mg/dL (75-100) 06/13/21 09:59 Calcium 9.2 mg/dL (8.4-10.2) 06/13/21 09:59 Total Bilirubin 0.50 mg/dL (0.1-1.2) 06/13/21 09:59 AST 25 units/L (5-40) 06/13/21 09:59 ALT 14 units/L (7-56) 06/13/21 09:59 Alkaline Phosphatase 57 units/L (35-129) 06/13/21 09:59 Total Protein 7.2 g/dL (6.3-8.2) 06/13/21 09:59 Albumin 3.9 g/dL (3.9-5) 06/13/21 09:59 Albumin/Globulin Ratio 1.2 % 06/13/21 09:59 Urine Color Yellow (Yellow) 06/11/21 03:41 Urine Turbidity Clear (Clear) 06/11/21 03:41 Urine pH 5.0 (5.0-7.0) 06/11/21 03:41 Ur Specific [place] 1.021 (1.003-1.030) 06/11/21 03:41 Urine Protein <15 mg/dl mg/dL (Negative) 06/11/21 03:41 Urine Glucose (UA) Neg mg/dL (Negative) 06/11/21 03:41 Urine Ketones 20 mg/dL (Negative) 06/11/21 03:41 Urine Blood Neg (Negative) 06/11/21 03:41 Urine Nitrite Neg (Negative) 06/11/21 03:41 Urine Bilirubin Neg (Negative) 06/11/21 03:41 Urine Urobilinogen 4.0 mg/dL (<2.0) 06/11/21 03:41 Ur Leukocyte Esterase Neg (Negative) 06/11/21 03:41 Urine WBC (Auto) 1.0 /HPF (0.0-6.0) 06/11/21 03:41 Urine RBC (Auto) 1.0 /HPF (0.0-6.0) 06/11/21 03:41 U Epithel Cells (Auto) < 1.0 /HPF (0-13.0) 06/11/21 03:41 Urine Mucus Few /HPF 06/11/21 03:41 Salicylates < 0.3 mg/dL (2.8-20.0) L 06/11/21 08:23 Urine Opiates Screen Presumptive negative 06/11/21 03:41 Urine Methadone Screen Presumptive negative 06/11/21 03:41 Acetaminophen 5.0 ug/mL (10.0-30.0) L 06/11/21 08:23 Ur Barbiturates Screen Presumptive negative 06/11/21 03:41 Ur Phencyclidine Scrn Presumptive negative 06/11/21 03:41 Ur Amphetamines Screen Presumptive negative 06/11/21 03:41 U Benzodiazepines Scrn Presumptive negative 06/11/21 03:41 Urine Cocaine Screen Presumptive negative 06/11/21 03:41 U Marijuana (THC) Screen Presumptive positive 06/11/21 03:41 Drugs of Abuse Note Disclamer 06/11/21 03:41 Plasma/Serum Alcohol < 0.01 % (0-0.07) 06/11/21 08:23 Coronavirus (PCR) Negative (Negative) 06/11/21 10:23 Dia/IV: Voiding Method Toilet Active Medications - Current Medications Current Medications: Generic Name Dose Route Start Last Admin Trade Name Freq PRN Reason Stop Dose Admin Acetaminophen 650 mg 06/12/21 21:35 Acetaminophen 325 Mg Tab PO Q4H PRN Pain MILD(1-3)/Fever >100.5/LYONS Al Hydrox/Mg Hydrox/Simethicone 30 ml 06/12/21 21:35 Alum-Mag Hydroxide-Simethicone 827-215-01ms/5ml Oral Liqd 30 Ml PO Q4H PRN Indigestion Diphenhydramine HCl 50 mg 06/12/21 10:53 Diphenhydramine 25 Mg Cap PO QHS PRN Insomnia Divalproex Sodium 250 mg 06/12/21 10:00 06/13/21 09:[address] 250 Mg Tab PO 250 mg BID MITCH Administration Famotidine 20 mg 06/13/21 10:00 06/13/21 09:44 Famotidine 20 Mg Tab PO 20 mg BID MITCH Administration Lorazepam 2 mg 06/12/21 10:53 Lorazepam 2 Mg/Ml Vial IM Q4HR PRN Agitation Magnesium Hydroxide 30 ml 06/12/21 21:35 Magnesium Hydroxide (Mom) Oral Liqd Udc PO Q4H PRN Constipation Metoclopramide HCl 10 mg 06/12/21 21:35 Metoclopramide 10 Mg/2 Ml Inj IV Q6H PRN Nausea And Vomiting Naloxone HCl 0.1 mg 06/12/21 21:35 Naloxone 0.4 Mg/1 Ml Inj IV Q2MIN PRN Res Rate </= 8 or 02 SAT < 92% Olanzapine 7.5 mg 06/12/21 10:00 06/13/21 11:14 Olanzapine 7.5 Mg Tab PO 7.5 mg QDAY MITCH Administration Ondansetron HCl 4 mg 06/12/21 21:35 Ondansetron 4 Mg/2 Ml Inj IV Q8H PRN Nausea And Vomiting Senna 8.6 mg 06/12/21 22:00 06/13/21 09:44 Sennosides 8.6 Mg Tab PO 8.6 mg Q12HR MITCH Administration Sodium Chloride 10 ml 06/12/21 22:00 06/13/21 09:45 Sodium Chloride 0.9% 10 Ml Flush Syringe IV Not Given BID MITCH Tramadol HCl 50 mg 06/12/21 21:38 Tramadol 50 Mg Tab PO Q4H PRN Pain, Moderate (4-6) Trazodone HCl 50 mg 06/12/21 22:00 06/12/21 21:19 Trazodone 50 Mg Tab PO 50 mg QHS MITCH Administration
[2021-06-13] MEDS: traZODone 50 MG TAB PO SCH (21:51)
[2021-06-13 23:53] VITALS: BP 124/69
[2021-06-14] MEDS: FAMOTIDINE 20 MG TAB PO SCH (10:41)
[2021-06-14] MEDS: DIVALPROEX DR 250 MG TAB PO SCH (10:41)
[2021-06-14] MEDS: SENNOSIDES 8.6 MG TAB PO SCH (10:41)
--- NOTE | 2021-06-14 10:55 | Progress Note ---
Hospitalist Physical - Constitutional Vitals: Temp Pulse Resp BP Pulse Ox 98.3 F 79 18 124/69 92 06/13/21 23:50 06/13/21 23:50 06/13/21 23:50 06/13/21 23:50 06/13/21 23:50 General appearance: Present: severe distress, well-nourished Results - Labs CBC & Chem 7: 06/13/21 09:59 06/13/21 09:59 Labs: Laboratory Last Values WBC 12.3 K/mm3 (4.5-11.0) H 06/13/21 09:59 RBC 4.85 M/mm3 (3.65-5.03) 06/13/21 09:59 Hgb 14.3 gm/dl (11.8-15.2) 06/13/21 09:59 Hct 44.7 % (35.5-45.6) 06/13/21 09:59 MCV 92 fl (84-94) 06/13/21 09:59 MCH 30 pg (28-32) 06/13/21 09:59 MCHC 32 % (32-34) 06/13/21 09:59 RDW 14.7 % (13.2-15.2) 06/13/21 09:59 Plt Count 411 K/mm3 (140-440) 06/13/21 09:59 Lymph % (Auto) 16.4 % (13.4-35.0) 06/13/21 09:59 [place] % (Auto) 8.5 % (0.0-7.3) H 06/13/21 09:59 Eos % (Auto) 1.3 % (0.0-4.3) 06/13/21 09:59 Baso % (Auto) 1.1 % (0.0-1.8) 06/13/21 09:59 Lymph # (Auto) 2.0 K/mm3 (1.2-5.4) 06/13/21 09:59 [place] # (Auto) 1.0 K/mm3 (0.0-0.8) H 06/13/21 09:59 Eos # (Auto) 0.2 K/mm3 (0.0-0.4) 06/13/21 09:59 Baso # (Auto) 0.1 K/mm3 (0.0-0.1) 06/13/21 09:59 Seg Neutrophils % 72.7 % (40.0-70.0) H 06/13/21 09:59 Seg Neutrophils # 8.9 K/mm3 (1.8-7.7) H 06/13/21 09:59 Sodium 141 mmol/L (137-145) 06/13/21 09:59 Potassium 3.5 mmol/L (3.6-5.0) L 06/13/21 09:59 Chloride 104.5 mmol/L (98-107) 06/13/21 09:59 Carbon Dioxide 25 mmol/L (22-30) 06/13/21 09:59 Anion Gap 15 mmol/L 06/13/21 09:59 BUN 6 mg/dL (9-20) L 06/13/21 09:59 Creatinine 1.0 mg/dL (0.8-1.3) 06/13/21 09:59 Estimated GFR > 60 ml/min 06/13/21 09:59 BUN/Creatinine Ratio 6 % 06/13/21 09:59 Glucose 98 mg/dL (75-100) 06/13/21 09:59 Calcium 9.2 mg/dL (8.4-10.2) 06/13/21 09:59 Total Bilirubin 0.50 mg/dL (0.1-1.2) 06/13/21 09:59 AST 25 units/L (5-40) 06/13/21 09:59 ALT 14 units/L (7-56) 06/13/21 09:59 Alkaline Phosphatase 57 units/L (35-129) 06/13/21 09:59 Total Protein 7.2 g/dL (6.3-8.2) 06/13/21 09:59 Albumin 3.9 g/dL (3.9-5) 06/13/21 09:59 Albumin/Globulin Ratio 1.2 % 06/13/21 09:59 Urine Color Yellow (Yellow) 06/11/21 03:41 Urine Turbidity Clear (Clear) 06/11/21 03:41 Urine pH 5.0 (5.0-7.0) 06/11/21 03:41 Ur Specific [place] 1.021 (1.003-1.030) 06/11/21 03:41 Urine Protein <15 mg/dl mg/dL (Negative) 06/11/21 03:41 Urine Glucose (UA) Neg mg/dL (Negative) 06/11/21 03:41 Urine Ketones 20 mg/dL (Negative) 06/11/21 03:41 Urine Blood Neg (Negative) 06/11/21 03:41 Urine Nitrite Neg (Negative) 06/11/21 03:41 Urine Bilirubin Neg (Negative) 06/11/21 03:41 Urine Urobilinogen 4.0 mg/dL (<2.0) 06/11/21 03:41 Ur Leukocyte Esterase Neg (Negative) 06/11/21 03:41 Urine WBC (Auto) 1.0 /HPF (0.0-6.0) 06/11/21 03:41 Urine RBC (Auto) 1.0 /HPF (0.0-6.0) 06/11/21 03:41 U Epithel Cells (Auto) < 1.0 /HPF (0-13.0) 06/11/21 03:41 Urine Mucus Few /HPF 06/11/21 03:41 Salicylates < 0.3 mg/dL (2.8-20.0) L 06/11/21 08:23 Urine Opiates Screen Presumptive negative 06/11/21 03:41 Urine Methadone Screen Presumptive negative 06/11/21 03:41 Acetaminophen 5.0 ug/mL (10.0-30.0) L 06/11/21 08:23 Ur Barbiturates Screen Presumptive negative 06/11/21 03:41 Ur Phencyclidine Scrn Presumptive negative 06/11/21 03:41 Ur Amphetamines Screen Presumptive negative 06/11/21 03:41 U Benzodiazepines Scrn Presumptive negative 06/11/21 03:41 Urine Cocaine Screen Presumptive negative 06/11/21 03:41 U Marijuana (THC) Screen Presumptive positive 06/11/21 03:41 Drugs of Abuse Note Disclamer 06/11/21 03:41 Plasma/Serum Alcohol < 0.01 % (0-0.07) 06/11/21 08:23 Coronavirus (PCR) Negative (Negative) 06/11/21 10:23 Dia/IV: Voiding Method Toilet Active Medications - Current Medications Current Medications: Generic Name Dose Route Start Last Admin Trade Name Freq PRN Reason Stop Dose Admin Acetaminophen 650 mg 06/12/21 21:35 Acetaminophen 325 Mg Tab PO Q4H PRN Pain MILD(1-3)/Fever >100.5/LYONS Al Hydrox/Mg Hydrox/Simethicone 30 ml 06/12/21 21:35 Alum-Mag Hydroxide-Simethicone [phone]/5ml Oral Liqd 30 Ml PO Q4H PRN Indigestion Diphenhydramine HCl 50 mg 06/12/21 10:53 Diphenhydramine 25 Mg Cap PO QHS PRN Insomnia Divalproex Sodium 250 mg 06/12/21 10:00 06/14/21 10:[address] 250 Mg Tab PO 250 mg BID MITCH Administration Famotidine 20 mg 06/13/21 10:00 06/14/21 10:41 Famotidine 20 Mg Tab PO 20 mg BID MITCH Administration Lorazepam 2 mg 06/12/21 10:53 Lorazepam 2 Mg/Ml Vial IM Q4HR PRN Agitation Magnesium Hydroxide 30 ml 06/12/21 21:35 Magnesium Hydroxide (Mom) Oral Liqd Udc PO Q4H PRN Constipation Metoclopramide HCl 10 mg 06/12/21 21:35 Metoclopramide 10 Mg/2 Ml Inj IV Q6H PRN Nausea And Vomiting Naloxone HCl 0.1 mg 06/12/21 21:35 Naloxone 0.4 Mg/1 Ml Inj IV Q2MIN PRN Res Rate </= 8 or 02 SAT < 92% Olanzapine 7.5 mg 06/12/21 10:00 06/14/21 10:41 Olanzapine 7.5 Mg Tab PO 7.5 mg QDAY MITCH Administration Ondansetron HCl 4 mg 06/12/21 21:35 Ondansetron 4 Mg/2 Ml Inj IV Q8H PRN Nausea And Vomiting Senna 8.6 mg 06/12/21 22:00 06/14/21 10:41 Sennosides 8.6 Mg Tab PO 8.6 mg Q12HR MITCH Administration Sodium Chloride 10 ml 06/12/21 22:00 06/14/21 10:41 Sodium Chloride 0.9% 10 Ml Flush Syringe IV Not Given BID MITCH Tramadol HCl 50 mg 06/12/21 21:38 Tramadol 50 Mg Tab PO Q4H PRN Pain, Moderate (4-6) Trazodone HCl 50 mg 06/12/21 22:00 06/13/21 21:51 Trazodone 50 Mg Tab PO 50 mg QHS MITCH Administration
--- NOTE | 2021-06-14 15:44 | Discharge Summary ---
Providers - Providers Date of Admission: 06/12/21 11:24 Attending physician: UNA AVILA MD 06/13/21 11:17 Consult to Mental Health [CONS] Routine Reason For Exam: homicidal ideation Consult to Physician [CONS] Routine Comment: Consulting Provider: WICHO MORA Physician Instructions: Reason For Exam: homicidal ideation Primary care physician: [facility] Hospitalization Reason for admission: psychosis Condition: Stable Hospital course: 45-year-old male reportedly with history of schizophrenia/bipolar disorder brought in by EMS for SI/HI. The patient states that he is having a crisis and his of 25 years left him. He states that he stood over her today with a gun and wanted to kill her. He says that he did not kill her because he still loves her but that he wanted to be killed by seamless hosiery knitter in a shoot out. He told the security police officer that when he gets out of here he is going to go kill his . He says to me that he has command auditory hallucinations telling him to kill himself. He denies visual hallucinations. He denies any physical symptoms or complaints other than anxiety and stress. ED work-up shows WBC statin 0.6, 12.7, 12.8, hemoglobin 14.0 sodium 142, potassium 3.7, creatinine 1.0, urinalysis done no sign of UTI, and a urine drug test done patient has marijuana positive. Patient is 45-year-old who has a history of schizophrenia and bipolar disorder came to the ED with suicidal ideation treatment that he has had is hearing voices that tell him to kill himself. Patient has a elevated WBC and blood work. Patient is being admitted for observation still when he is accepted by psych unit/facility. Patient is medically stable will be discharged as soon as there is accepting psych faci lity. Marijuana use Will discuss marijuana use cessation when patient is mentally stable 06/13: Continue supportive care. Leukocytosis is secondary. CXR checked, no acute issue. Patient is medically stable for discharge once psych determines destination 06/14: Patient seen and examined, resting comfortable, no distress. still with suicidal ideation. (1) Leukocytosis (leucocytosis) Current Visit: Yes Status: Acute Plan to address problem: Unknown cause-likely reactive Patient has no evidence of infection Monitor WBC (2) Sucidial and homicidal ideation (3) Marijuana use disorder (4)Psychosis Current Visit: Yes Status: Acute Plan to address problem: Psych consult resume anti-psychotics patient is medically cleared D/c patient when Psych accepts patient Disposition: [id number] PS[facility] HOSP/PSY UNIT Final Discharge Diagnosis (Prints w/discharge instructions): Suicidal Ideation Time spent for discharge: 35 min Core Measure Documentation - Palliative Care Palliative Care/ Comfort Measures: Not Applicable - Core Measures Any of the following diagnoses?: none Exam - Physical Exam Narrative exam: General appearance: Present: well-nourished - EENT Eyes: Present: PERRL ENT: hearing intact, clear oral mucosa - Neck Neck: Present: supple, normal ROM - Respiratory Respiratory effort: normal Respiratory: bilateral: CTA - Cardiovascular Heart Sounds: Present: S1 & S2. Absent: rub, click - Extremities Extremities: pulses symmetrical, No edema Peripheral Pulses: within normal limits - Abdominal General gastrointestinal: Present: soft, non-tender, non-distended, normal bowel sounds Male genitourinary: Present: normal - Integumentary Integumentary: Present: clear, warm, dry - Musculoskeletal Musculoskeletal: gait normal, strength equal bilaterally - Psychiatric Psychiatric: appropriate mood/affect, intact judgment & insight - Neurologic Neurologic: CNII-XII intact, moves all extremities - Allied Health Allied health notes reviewed: nursing - Constitutional Vitals: Temp Pulse Resp BP Pulse Ox 98.3 F 79 18 124/69 92 06/13/21 23:50 06/13/21 23:50 06/13/21 23:50 06/13/21 23:50 06/13/21 23:50 Plan Activity: advance as tolerated, fall precautions Diet: low fat Special Instructions: record daily BP diary Follow up with: PRIMARY CARE, [Primary Care Provider] - 3-5 Days Prescriptions: traZODone [Desyrel] 50 mg PO QHS #[address] [Depakote Dr] 250 mg PO BID #60 tablet OLANzapine [ZyPREXA] 7.5 mg PO QDAY #30 tablet
== END 2021-06-14 16:00 ==
LOC: ED 02:24 → 3A 06-12 11:24
PROVIDERS: ADMIT Internal Medicine; ATTEND Internal Medicine
DX: F29 Unspecified psychosis not due to a substance or known physiological condition (principal); Z20.822 Contact with and (suspected) exposure to COVID-19; D72.829 Elevated white blood cell count, unspecified; R45.851 Suicidal ideations; F31.9 Bipolar disorder, unspecified; F20.9 Schizophrenia, unspecified; R45.850 Homicidal ideations; F17.210 Nicotine dependence, cigarettes, uncomplicated; F12.90 Cannabis use, unspecified, uncomplicated; Z79.899 Other long term (current) drug therapy
CPT/HCPCS: 36415; 71045; 80048; 80053; 80307; 81001; 85025; 85027; 96374; 99284; G0378; J7030; U0003; 80320; G0480; J2060